=== PATIENT | male | born 1985 | race Asian ===

== ENCOUNTER 2016-10-28 16:48 | Emergency (ER) | payer MEDICAID ==
[2015-10-07 11:56] VITALS: Ht 157.5 cm; Wt 45.4 kg
[~2016-10-28] VITALS: Ht 157.5 cm; Wt 45.4 kg
[~2016-10-28 16:48] MED LIST: ALLO300T2 PO; CIPR-172 PO; CIPR-260 PO; CLIN-77 PO; CLIN300C3 PO; DILT180C69; DIPH-179 PO; DOXY100T2 PO; FOLI0.8T2 PO; HYDR-1189 PO; INSU100V; INSU100V9; LEVO250T20 PO; LIP40; MULT PO; MYCO500T; PRED20TA PO; RANI-281; RENVELA; SEVE800T10 PO; SODI650T PO; SULF-261 PO; [UNRECOGNIZED DRUG - CODE]
[2016-10-28 16:54] VITALS: BP 124/75; PULSE 102; RESP 15; TEMP 97; O2SAT 97
--- NOTE | 2016-10-28 17:03 | NUR ---
Patient to ER bed 8 to gown for evaluation. Side rails up. Report given to JOSE Elliott.
--- NOTE | 2016-10-28 17:05 | NUR ---
Pt brought in by mother in stable condition. Pt c/o lower abd wall pain 8 from abscess. Pt stated that the abscess occurred 1 wk ago. 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 Pt stated that abscess is increasing in size and getting painful. 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 -sob -chest pain. No acute distress noted at this time, will continue to monitor
--- NOTE | 2016-10-28 17:08 | NUR ---
ER at bedside examining patient.
[2016-10-28] MEDS ORDERED: LIDOCAINE/EPI 1% 1:100000 20 ML VIAL IJ ONE (17:15)
[2016-10-28] MEDS ORDERED: ONDANSETRON 4 MG ODT TAB PO ONE (17:15)
[2016-10-28] MEDS ORDERED: cefTRIAXone 1 GM in LIDOCAINE 1%, 20 ML MDV 2.1 ML IM ONE (17:15)
[2016-10-28] MEDS ORDERED: MORPHINE 2 MG/ML INJ. SYRINGE IM ONE (17:15)
[2016-10-28] MEDS ORDERED: BENZOCAINE 20% 0.5mL UD SPRAY MM ONE (17:45)
[2016-10-28 18:12] VITALS: BP 124/75; PULSE 98; RESP 15; TEMP 97; O2SAT 97
--- NOTE | 2016-10-28 18:12 | NUR ---
Patient given written and verbal discharge instructions and verbalizes understanding. ER MD Dr. Gallegos discussed with patient the results and treatment provided. Patient in stable condition. ID arm band removed. Rx of Zofran and [place] given. Patient educated on pain management and to follow up with PMD. Pain Scale 3/10. Opportunity for questions provided and answered.
== END 2016-10-28 18:12 | disposition home or self-care (01) ==
LOC: SED 16:48
DX: L02.211 Cutaneous abscess of abdominal wall (principal); E11.9 Type 2 diabetes mellitus without complications; I10 Essential (primary) hypertension; M10.9 Gout, unspecified; Z99.2 Dependence on renal dialysis
CPT/HCPCS: 10060; 96372; 99284; J0696; J2001; J2270; Q0162; 99283

== ENCOUNTER 2016-11-24 17:05 | Emergency (ER) | payer MEDICAID ==
[2015-10-07 11:56] VITALS: Ht 157.5 cm; Wt 45.4 kg
[~2016-11-24] VITALS: Ht 157.5 cm; Wt 45.4 kg
[2016-11-24 17:13] VITALS: BP 132/82; PULSE 107; RESP 16; TEMP 98; O2SAT 98
--- NOTE | 2016-11-24 17:21 | NUR ---
Patient to ER bed 2 to gown for evaluation. Side rails up. Report given to NEFTALI GARCIA.
--- NOTE | 2016-11-24 17:21 | NUR ---
c/o abdominal pain for two day. 06/28, abdominal soft, tender to palp. awake,alert,no acute distress.
[2016-11-24 18:06] LABS: BASOPHILS # (AUTO) 0.1 K/uL (0.0-0.2); BASOPHILS % (AUTO) 1.8 % (0.0-2.0); EOSINOPHILS % (AUTO) 0.7 % (0.0-4.0); HEMATOCRIT 34.5 % (36-54); HEMOGLOBIN 11.7 g/dL (14.0-18.0); LYMPHOCYTES # (AUTO) 1.3 K/uL (1.0-5.5); LYMPHOCYTES % (AUTO) 19.2 % (20.5-51.5); MEAN CORPUSCULAR HEMOGLOBIN 31 pg (27-31); MEAN CORPUSCULAR HGB CONC 34 % (32-36); MEAN CORPUSCULAR VOLUME 90 fL (79.0-98.0); MONOCYTES # (AUTO) 0.6 K/uL (0.0-1.0); MONOCYTES % (AUTO) 8.5 % (1.7-9.3); NEUTROPHILS # (AUTO) 4.8 K/uL (1.8-7.7); NEUTROPHILS % (AUTO) 69.8 % (40.0-70.0); PLATELET COUNT (AUTO) 170 K/uL (130-430); RED BLOOD CELL COUNT(AUTO) 3.81 MIL/uL (4.2-6.2); RED CELL DISTRIBUTION WIDTH 15.9 % (9.0-15.0); WHITE BLOOD COUNT (AUTO) 6.8 K/uL (4.8-10.8)
--- NOTE | 2016-11-24 18:09 | NUR ---
# 20 gauge angiocath placed to left hand . Use of asceptic technique. Opsite placed over site. Blood return noted. Blood for lab drawn from site. Flushed with 10 cc of normal saline. No evidence of infiltration noted. Patient tolerated well.
--- NOTE | 2016-11-24 18:10 | NUR ---
ER at bedside examining patient.
[2016-11-24 18:38] LABS: CALCIUM 9.5 mg/dL (8.4-11.0)
[2016-11-24 18:43] LABS: ALBUMIN 4.1 g/dL (3.4-4.8); TOTAL BILIRUBIN 0.9 mg/dL (0.0-1.0); TOTAL PROTEIN, SERUM 7.6 g/dL (6.4-8.3)
[2016-11-24 18:58] LABS: CREATININE 8.17 mg/dL (0.55-1.30)
[2016-11-24] MEDS ORDERED: ACETAMINOPHEN 500 MG TABLET PO ONE (19:00)
[2016-11-24] MEDS ORDERED: MAG HYDROX/AL HYDROX/SIMETH 30 ML, LIDOCAINE VISCOUS 2% 15ML (PO) 10 ML, BELLADONNA ALK... PO ONE ×3 (19:00)
--- NOTE | 2016-11-24 19:16 | NUR ---
hand off to overnight caregiver Morgan GARCIA
--- NOTE | 2016-11-24 19:20 | NUR ---
Pt is resting in bed. Pt states his abd pain is 10/10. VSS. Will continue to monitor via property assessment monitor. AAOx4. No distress noted.
[2016-11-24 20:47] VITALS: BP 124/74; PULSE 94; RESP 16; TEMP 97.7; O2SAT 98
--- NOTE | 2016-11-24 20:50 | NUR ---
Patient given written and verbal discharge instructions and verbalizes understanding. ER MD discussed with patient the results and treatment provided. Patient in stable condition. ID arm band removed. IV catheter removed intact and dressing applied, no active bleeding. Rx of Donnatel given. Patient educated on pain management and to follow up with PMD. Pain Scale 4/10. Opportunity for questions provided and answered.
== END 2016-11-24 20:50 | disposition home or self-care (01) ==
LOC: SED 17:05
DX: K52.9 Noninfective gastroenteritis and colitis, unspecified (principal); R51 Headache; E11.9 Type 2 diabetes mellitus without complications; I10 Essential (primary) hypertension; M10.9 Gout, unspecified
CPT/HCPCS: 36415; 71010; 80053; 83880; 84484; 85025; 99285; J2001

== ENCOUNTER 2017-02-03 13:48 | Inpatient (IN) | payer MEDICAID ==
[~2017-02-03] VITALS: Ht 157.5 cm; Wt 44.9 kg
[2017-02-03 13:48] VITALS: BP_SYST 126
[~2017-02-03 13:48] MED LIST changes: -ALLO300T2 PO; -CIPR-172 PO; -CIPR-260 PO; -CLIN-77 PO; -CLIN300C3 PO; -DILT180C69; -DIPH-179 PO; -DOXY100T2 PO; -HYDR-1189 PO; -INSU100V; -INSU100V9; -LEVO250T20 PO; -LIP40; -MULT PO; -MYCO500T; -PRED20TA PO; -RANI-281; -RENVELA; -SODI650T PO; -SULF-261 PO; -[UNRECOGNIZED DRUG - CODE]
[2017-02-03] MEDS ORDERED: levETIRAcetam 1,000 MG in NS 100 ML IV ONE (14:30)
[2017-02-03 15:03] LABS: BASOPHILS % (AUTO) 0.6 % (0.0-2.0); EOSINOPHILS # (AUTO) 0.2 K/uL (0.0-0.4); EOSINOPHILS % (AUTO) 2.8 % (0.0-4.0); HEMATOCRIT 30.5 % (36-54); HEMOGLOBIN 10.1 g/dL (14.0-18.0); LYMPHOCYTES % (AUTO) 24.4 % (20.5-51.5); MEAN CORPUSCULAR HEMOGLOBIN 27 pg (27-31); MEAN CORPUSCULAR HGB CONC 33 % (32-36); MEAN CORPUSCULAR VOLUME 82 fL (79.0-98.0); MONOCYTES # (AUTO) 0.4 K/uL (0.0-1.0); MONOCYTES % (AUTO) 5.5 % (1.7-9.3); NEUTROPHILS # (AUTO) 5.5 K/uL (1.8-7.7); NEUTROPHILS % (AUTO) 66.7 % (40.0-70.0); PLATELET COUNT (AUTO) 161 K/uL (130-430); RED BLOOD CELL COUNT(AUTO) 3.71 MIL/uL (4.2-6.2); RED CELL DISTRIBUTION WIDTH 12.9 % (9.0-15.0); WHITE BLOOD COUNT (AUTO) 8.1 K/uL (4.8-10.8)
[2017-02-03 15:17] LABS: CALCIUM 9.3 mg/dL (8.4-11.0); CREATININE 7.27 mg/dL (0.55-1.30); POTASSIUM 3.7 mmol/L (3.5-5.1)
[2017-02-03 15:22] LABS: ALBUMIN 3.2 g/dL (3.4-4.8); TOTAL BILIRUBIN 0.3 mg/dL (0.0-1.0); TOTAL PROTEIN, SERUM 6.6 g/dL (6.4-8.3)
[2017-02-03] MEDS ORDERED: MORPHINE 2 MG/ML INJ. SYRINGE IVP ONE (16:00)
[2017-02-03] MEDS ORDERED: levETIRAcetam 500 MG in NS 100 ML IV ONE (16:45)
[2017-02-03] MEDS ORDERED: COMMUNICATION ORDER XX SCH (17:15)
[2017-02-03 17:29] VITALS: BP_SYST 137
[2017-02-03 20:00] VITALS: BP_SYST 113
[2017-02-03] MEDS ORDERED: MORPHINE 2 MG/ML INJ. SYRINGE IVP PRN (21:45)
[2017-02-03 23:27] VITALS: BP_SYST 110
[2017-02-04] VITALS (7 sets, daily range): BP systolic 80–101
[2017-02-04] MEDS: levETIRAcetam 1,000 MG in NS 100 ML IV SCH (09:28)
[2017-02-04] MEDS ORDERED: NS 500 ML IV ONE (09:45)
[2017-02-04] MEDS: HYDROcodone/ACETAMIN 5-325 MG TAB (NORCO/ VICODIN) PO PRN ×2 (13:31→21:26)
[2017-02-04] MEDS ORDERED: levETIRAcetam 500 MG in NS 100 ML IV SCH (18:00)
[2017-02-04] MEDS: NACL 0.9% 1,000 ML IV SCH (18:44)
[2017-02-04] MEDS ORDERED: LOPERAMIDE HCL 2 MG CAPSULE PO ONE (21:30)
[2017-02-04] MEDS ORDERED: TEMAZEPAM 15 MG CAPSULE PO ONE (23:30)
[2017-02-05] MEDS: NACL 0.9% 1,000 ML IV SCH (02:40)
[2017-02-05 03:40] VITALS: BP_SYST 81
[2017-02-05 07:02] LABS: BASOPHILS % (AUTO) 0.4 % (0.0-2.0); EOSINOPHILS # (AUTO) 0.3 K/uL (0.0-0.4); EOSINOPHILS % (AUTO) 3.5 % (0.0-4.0); HEMATOCRIT 29.4 % (36-54); HEMOGLOBIN 9.7 g/dL (14.0-18.0); LYMPHOCYTES # (AUTO) 2.4 K/uL (1.0-5.5); LYMPHOCYTES % (AUTO) 28.1 % (20.5-51.5); MEAN CORPUSCULAR HEMOGLOBIN 27 pg (27-31); MEAN CORPUSCULAR HGB CONC 33 % (32-36); MEAN CORPUSCULAR VOLUME 82 fL (79.0-98.0); MONOCYTES # (AUTO) 0.4 K/uL (0.0-1.0); MONOCYTES % (AUTO) 4.7 % (1.7-9.3); NEUTROPHILS # (AUTO) 5.6 K/uL (1.8-7.7); NEUTROPHILS % (AUTO) 63.3 % (40.0-70.0); PLATELET COUNT (AUTO) 172 K/uL (130-430); RED CELL DISTRIBUTION WIDTH 13.2 % (9.0-15.0); WHITE BLOOD COUNT (AUTO) 8.7 K/uL (4.8-10.8)
[2017-02-05 07:27] LABS: ALBUMIN 3.1 g/dL (3.4-4.8); CREATININE 5.88 mg/dL (0.55-1.30); POTASSIUM 3.6 mmol/L (3.5-5.1); THYROID STIMULATING HORMONE 0.75 uIu/mL (0.34-4.82); TOTAL BILIRUBIN 0.4 mg/dL (0.0-1.0); TOTAL PROTEIN, SERUM 6.6 g/dL (6.4-8.3)
[2017-02-05] MEDS: levETIRAcetam 1,000 MG in NS 100 ML IV SCH (08:52)
[2017-02-05 11:25] VITALS: BP_SYST 98
[2017-02-05] MEDS ORDERED: INSULIN REGULAR, HUMAN 100 UNITS/ML, 10 ML VIAL SUBCUT ONE (12:30)
[2017-02-05] MEDS ORDERED: LEVE500T13 PO (13:36)
[2017-02-05 15:23] VITALS: BP_SYST 90
[2017-02-05 15:26] VITALS: BP_SYST 90
== END 2017-02-05 16:00 | disposition home or self-care (01) | DRG 53 ==
LOC: SED 13:48 → STU 16:35
PROVIDERS: ADMIT Internal Medicine Hospice and Palliative Medicine; ATTEND Internal Medicine Hospice and Palliative Medicine
DX: G40.909 Epilepsy, unspecified, not intractable, without status epilepticus (principal); T86.12 Kidney transplant failure; N18.6 End stage renal disease; I95.9 Hypotension, unspecified; I12.0 Hypertensive chronic kidney disease with stage 5 chronic kidney disease or end stage renal disease; E11.22 Type 2 diabetes mellitus with diabetic chronic kidney disease; N25.81 Secondary hyperparathyroidism of renal origin; E11.42 Type 2 diabetes mellitus with diabetic polyneuropathy; E11.65 Type 2 diabetes mellitus with hyperglycemia; L08.9 Local infection of the skin and subcutaneous tissue, unspecified; G31.84 Mild cognitive impairment of uncertain or unknown etiology; M10.9 Gout, unspecified; H91.90 Unspecified hearing loss, unspecified ear; D63.1 Anemia in chronic kidney disease; G89.29 Other chronic pain; Z99.2 Dependence on renal dialysis; Z79.899 Other long term (current) drug therapy; Z91.19 Patient's noncompliance with other medical treatment and regimen
CPT/HCPCS: 36415; 70450-TC; 70551; 71010; 80053; 80061; 82962; 83036; 83605; 83880; 84443-TC; 84484; 85025; 87081; 87230-TC; 89055; 90935; 93005; 93306; 96365; 96375; 99285; J1815; J1953; J2270; J7030; J7040; J7050

== ENCOUNTER 2017-02-26 12:28 | Emergency (ER) | payer MEDICAID ==
[~2017-02-26] VITALS: Ht 157.5 cm; Wt 45.4 kg
[~2017-02-26 12:28] MED LIST changes: +LEVE500T13 PO
[2017-02-26 12:34] VITALS: BP_SYST 122
[2017-02-26] MEDS ORDERED: ONDANSETRON 4 MG ODT TAB PO ONE (13:15)
[2017-02-26] MEDS ORDERED: HYDROcodone/ACETAMIN 10-325 MG TAB PO ONE (13:15)
[2017-02-26 13:16] LABS: BASOPHILS # (AUTO) 0.1 K/uL (0.0-0.2); BASOPHILS % (AUTO) 0.9 % (0.0-2.0); EOSINOPHILS # (AUTO) 0.3 K/uL (0.0-0.4); EOSINOPHILS % (AUTO) 4.9 % (0.0-4.0); LYMPHOCYTES % (AUTO) 35.4 % (20.5-51.5); MEAN CORPUSCULAR HEMOGLOBIN 28 pg (27-31); MEAN CORPUSCULAR HGB CONC 33 % (32-36); MEAN CORPUSCULAR VOLUME 84 fL (79.0-98.0); MONOCYTES # (AUTO) 0.3 K/uL (0.0-1.0); MONOCYTES % (AUTO) 5.9 % (1.7-9.3); NEUTROPHILS % (AUTO) 52.9 % (40.0-70.0); PLATELET COUNT (AUTO) 163 K/uL (130-430); RED BLOOD CELL COUNT(AUTO) 3.55 MIL/uL (4.2-6.2); RED CELL DISTRIBUTION WIDTH 16.4 % (9.0-15.0); WHITE BLOOD COUNT (AUTO) 5.7 K/uL (4.8-10.8)
[2017-02-26 13:26] LABS: CALCIUM 9.3 mg/dL (8.4-11.0); POTASSIUM 4.1 mmol/L (3.5-5.1)
[2017-02-26 13:31] LABS: CREATININE 7.57 mg/dL (0.55-1.30)
[2017-02-26 13:35] LABS: ALBUMIN 3.6 g/dL (3.4-4.8); TOTAL BILIRUBIN 0.6 mg/dL (0.0-1.0); TOTAL PROTEIN, SERUM 6.9 g/dL (6.4-8.3)
[2017-02-26 15:00] VITALS: BP_SYST 129
== END 2017-02-26 15:00 | disposition home or self-care (01) ==
LOC: SED 12:28
DX: R10.9 Unspecified abdominal pain (principal); E11.22 Type 2 diabetes mellitus with diabetic chronic kidney disease; I12.0 Hypertensive chronic kidney disease with stage 5 chronic kidney disease or end stage renal disease; N18.6 End stage renal disease; Z99.2 Dependence on renal dialysis
CPT/HCPCS: 36415; 74176; 80053; 82150; 83690; 85025; 85610; 85730; 99285; Q0162

== ENCOUNTER 2017-03-01 21:16 | Emergency (ER) | payer MEDICAID ==
[~2017-03-01] VITALS: Ht 162.6 cm; Wt 45.4 kg
[2017-03-01 21:28] VITALS: BP_SYST 145
--- NOTE | 2017-03-01 22:03 | NUR ---
Patient to [facility] for evaluation. Side rails up. Report given to JOSE Madrid
--- NOTE | 2017-03-01 22:08 | NUR ---
Patient reports that he has been having lower abdominal pain for 4 days. He is only able to eat small meals and then reports having stomach pain. Pain 10/10 Abdomen is round and soft. Denies any Nausea,vomiting or diarrhea. Patient has left arm shunt with bruit. No other complaints/injuries per patient or as noted.
--- NOTE | 2017-03-01 22:11 | NUR ---
Dr. Freire at bedside.
[2017-03-01] MEDS ORDERED: ONDANSETRON HCL 4 MG/2 ML VIAL IVP ONE (22:15)
[2017-03-01] MEDS ORDERED: KETOROLAC TROMETHAMINE 30 MG VIAL IVP ONE (22:15)
[2017-03-01 22:35] LABS: BASOPHILS # (AUTO) 0.2 K/uL (0.0-0.2); BASOPHILS % (AUTO) 2.2 % (0.0-2.0); EOSINOPHILS # (AUTO) 0.1 K/uL (0.0-0.4); EOSINOPHILS % (AUTO) 0.7 % (0.0-4.0); HEMATOCRIT 33.1 % (36-54); HEMOGLOBIN 10.8 g/dL (14.0-18.0); LYMPHOCYTES # (AUTO) 1.5 K/uL (1.0-5.5); LYMPHOCYTES % (AUTO) 16.7 % (20.5-51.5); MEAN CORPUSCULAR HEMOGLOBIN 28 pg (27-31); MEAN CORPUSCULAR HGB CONC 33 % (32-36); MEAN CORPUSCULAR VOLUME 85 fL (79.0-98.0); MONOCYTES # (AUTO) 0.5 K/uL (0.0-1.0); MONOCYTES % (AUTO) 6.1 % (1.7-9.3); NEUTROPHILS # (AUTO) 6.4 K/uL (1.8-7.7); NEUTROPHILS % (AUTO) 74.3 % (40.0-70.0); PLATELET COUNT (AUTO) 202 K/uL (130-430); RED BLOOD CELL COUNT(AUTO) 3.89 MIL/uL (4.2-6.2); RED CELL DISTRIBUTION WIDTH 15.6 % (9.0-15.0); WHITE BLOOD COUNT (AUTO) 8.7 K/uL (4.8-10.8)
[2017-03-01] MEDS ORDERED: ONDANSETRON HCL 4 MG/5 ML UDC PO ONE (22:45)
[2017-03-01] MEDS ORDERED: KETOROLAC TROMETHAMINE 30 MG VIAL IM ONE (22:45)
[2017-03-01 22:56] LABS: CALCIUM 10.2 mg/dL (8.4-11.0); POTASSIUM 4.8 mmol/L (3.5-5.1)
[2017-03-01 23:07] LABS: PROTHROMBIN TIME 11.2 SECS (9.5-12.5)
[2017-03-01 23:10] LABS: ALBUMIN 4.5 g/dL (3.4-4.8); TOTAL PROTEIN, SERUM 8.7 g/dL (6.4-8.3)
[2017-03-01 23:12] LABS: CREATININE 14.19 mg/dL (0.55-1.30)
--- NOTE | 2017-03-01 23:38 | NUR ---
Minal vance in ED - 03/02/17 at 0153 by [email or web address] Patient to [facility] for evaluation. Side rails up. Report given to JOSE Madrid
[2017-03-02 01:09] VITALS: BP_SYST 145
--- NOTE | 2017-03-02 01:09 | NUR ---
Patient given written and verbal discharge instructions and verbalizes understanding. ER MD discussed with patient the results and treatment provided. Patient in stable condition. ID arm band removed. IV catheter removed intact and dressing applied, no active bleeding. Rx of Zofran and Bentyl given. Patient educated on pain management and to follow up with PMD x 2 days. Pain Scale 0/10 Opportunity for questions provided and answered.
== END 2017-03-02 01:09 | disposition home or self-care (01) ==
LOC: SED 21:16
DX: R10.84 Generalized abdominal pain (principal); I12.0 Hypertensive chronic kidney disease with stage 5 chronic kidney disease or end stage renal disease; E11.22 Type 2 diabetes mellitus with diabetic chronic kidney disease; N18.6 End stage renal disease; M10.9 Gout, unspecified; Z97.8 Presence of other specified devices
CPT/HCPCS: 36415; 80053; 85025; 85610; 85730; 96372; 99284; J1885; Q0162

== ENCOUNTER 2017-03-07 11:43 | Outpatient (CLI) | payer MEDICAID, OTHER | END 2017-03-07 20:52 | disposition home or self-care (01) | LOC: SMI 11:43 | PROVIDERS: ATTEND Internal Medicine | DX: K80.10 Calculus of gallbladder with chronic cholecystitis without obstruction (principal); N26.1 Atrophy of kidney (terminal) | CPT/HCPCS: 74181 ==

== ENCOUNTER 2017-04-26 09:41 | Outpatient (CLI) | payer OTHER | END 2017-04-26 19:40 | disposition home or self-care (01) | LOC: SMI 09:41 | PROVIDERS: ATTEND Internal Medicine Gastroenterology | DX: N26.1 Atrophy of kidney (terminal) (principal) | CPT/HCPCS: 74181 ==

== ENCOUNTER 2017-07-07 09:10 | Outpatient (CLI) | payer OTHER | END 2017-07-07 20:01 | disposition home or self-care (01) | LOC: SMI 09:10 | PROVIDERS: ATTEND Internal Medicine Gastroenterology | DX: N13.30 Unspecified hydronephrosis (principal); N26.1 Atrophy of kidney (terminal); R16.1 Splenomegaly, not elsewhere classified; R79.89 Other specified abnormal findings of blood chemistry; Z90.49 Acquired absence of other specified parts of digestive tract | CPT/HCPCS: 74181 ==

== ENCOUNTER 2018-03-31 20:11 | Emergency (ER) | payer OTHER, MEDICAID ==
[~2018-03-31] VITALS: Ht 152.4 cm; Wt 45.4 kg
[2018-03-31 20:34] VITALS: BP_SYST 82
[2018-03-31 21:14] VITALS: BP_SYST 94
== END 2018-03-31 21:14 | disposition home or self-care (01) ==
LOC: SED 20:11
DX: L02.31 Cutaneous abscess of buttock (principal); M10.9 Gout, unspecified; I12.0 Hypertensive chronic kidney disease with stage 5 chronic kidney disease or end stage renal disease; E11.22 Type 2 diabetes mellitus with diabetic chronic kidney disease; N18.6 End stage renal disease; Z99.2 Dependence on renal dialysis; Z97.8 Presence of other specified devices; Z79.899 Other long term (current) drug therapy
CPT/HCPCS: 99283

== ENCOUNTER 2018-04-02 07:37 | Emergency (ER) | payer OTHER, MEDICAID ==
[~2018-04-02] VITALS: Ht 157.5 cm; Wt 43.1 kg
[2018-04-02 07:46] VITALS: BP_SYST 93
[2018-04-02 08:00] VITALS: BP_SYST 93
== END 2018-04-02 08:00 | disposition home or self-care (01) ==
LOC: SED 07:37
DX: Z48.01 Encounter for change or removal of surgical wound dressing (principal); M10.9 Gout, unspecified; E11.29 Type 2 diabetes mellitus with other diabetic kidney complication; N28.9 Disorder of kidney and ureter, unspecified; I10 Essential (primary) hypertension; Z79.899 Other long term (current) drug therapy
CPT/HCPCS: 99282

== ENCOUNTER 2018-04-14 08:05 | Outpatient (CLI) | payer OTHER, MEDICAID | END 2018-04-14 20:07 | disposition home or self-care (01) | LOC: SUS 08:05 | PROVIDERS: ATTEND Internal Medicine | DX: K86.1 Other chronic pancreatitis (principal); I12.0 Hypertensive chronic kidney disease with stage 5 chronic kidney disease or end stage renal disease; N18.6 End stage renal disease; E11.22 Type 2 diabetes mellitus with diabetic chronic kidney disease; Z94.0 Kidney transplant status | CPT/HCPCS: 76700-TC ==